=== PATIENT | female | born 1990 | race Caucasian/White ===

== ENCOUNTER 2019-08-22 17:12 | Emergency (ER) | payer BC ==
[2019-08-22 17:27] VITALS: BP 141/78; PULSE 93
--- NOTE | 2019-08-22 17:48 | EDM.PDOC ---
ED HPI GENERAL MEDICAL PROBLEM - General Chief Complaint: General Stated Complaint: sick Time Seen by Provider: 08/22/19 17:47 Source of Information: Reports: Patient History Limitations: Reports: No Limitations - History of Present Illness INITIAL COMMENTS - FREE TEXT/NARRATIVE: HISTORY AND PHYSICAL: History of present illness: Patient is a 29-year-old female presents to the ED With complaint of painful vaginal area. Patient states that she has had pain for the past 2 weeks after having intercourse with 2 people at the same time. She states she did use protection. She states she has history of batholin cysts requiring removal and feels like she may have more of these. She states it feels like there is a cut in her vaginal area and has a lot of pain with urination and a lot of pressure "down there." She also reports a sore throat on and off for the past couple of weeks. Review of systems: As per history of present illness and below otherwise all systems reviewed and negative. Past medical history: As per history of present illness and as reviewed below otherwise noncontributory. Surgical history: As per history of present illness and as reviewed below otherwise noncontributory. Social history: No reported history of drug or alcohol abuse. Family history: As per history of present illness and as reviewed below otherwise noncontributory. Physical exam: General: Patient sitting comfortably in no acute distress and nontoxic appearing HEENT: Atraumatic, normocephalic, pupils reactive, negative for conjunctival pallor or scleral icterus, mucous membranes moist, throat clear, neck supple, nontender, trachea midline. No meningeal signs. Lungs: Clear to auscultation, breath sounds equal bilaterally, chest nontender. Heart: S1S2, regular, negative for clicks, rubs, or overt murmur. Abdomen: Soft, nondistended, nontender. Negative for masses or hepatosplenomegaly. Negative for costovertebral tenderness. No rigidity, rebound , guarding. Pelvis: Stable nontender. Genitourinary: there are multiple small (2-3mm) ulcerative lesions with a pink base to the labia majora, labia minor, and near the clitoris. There is a small amount of vaginal discharge noted. Rectal: Deferred. Extremities: Atraumatic, negative for cords or calf pain. Neurovascular unremarkable. Neuro: Awake, alert, oriented. Cranial nerves II through XII unremarkable. Cerebellum unremarkable. Motor and sensory unremarkable throughout. Exam nonfocal. Notes: Diagnostics: UA, urine hcg, gonorrhea/chlamydia, cand/BV/trich, RPR, viral culture, rapid strep Therapeutics: 250mg Rocephin IM 1g Azithromycin PO Prescriptions: none Impression: Yeast vaginitis, vaginal lesions, STD concern Plan: Take medications as prescribed Follow up with [employer] Return to ED as needed as discussed Definitive disposition and diagnosis as appropriate pending reevaluation and review of above. Vaginal Pain Score (Numeric/FACES): 6 - Related Data Allergies Allergy/AdvReac Type Severity Reaction Status Date / Time No Known Allergies Allergy Verified 07/29/15 17:44 Home Meds: Home Meds Vits #93/Iron Fum/FA [ Formula Tablet] 1 each PO DAILY [History] Venlafaxine [Effexor XR] 150 tab PO DAILY 12/15/14 [History] Calcium Phosphate Trib/Vit D3 [Citracal + D3 Gummies] 1 tab.chew PO DAILY [History] Cholecalciferol (Vitamin D3) [Vitamin D3] 1,000 units PO DAILY 04/14/16 [History ] Clindamycin Phosphate 1 applic TOP BID 04/14/16 [History] Cyanocobalamin (Vitamin B-12) [Vitamin B-12] 1,000 mcg PO DAILY 04/14/16 [ History] Ferrous Sulfate [Iron] 1 tab PO DAILY 04/14/16 [History] Vitamin B Complex Vit C No.4 [Super B Complex] 1 tab PO DAILY 04/14/16 [History] Zinc 1 tab PO DAILY 04/14/16 [History] Diclofenac Sodium [Voltaren] 75 mg PO BIDMEALS #20 tab.cr 08/22/19 [Rx] Past Medical History HEENT History: Reports: None Cardiovascular History: Reports: None, Other (See Below) Respiratory History: Reports: None Gastrointestinal History: Reports: Bowel Obstruction Other Gastrointestinal History: gastric bypass 2011 Genitourinary History: Reports: UTI, Recurrent [employer] History: Reports: Polycystic Ovaries Musculoskeletal History: Reports: None Neurological History: Reports: None Psychiatric History: Reports: Anxiety, Depression Endocrine/Metabolic History: Reports: Obesity/BMI 30+ Hematologic History: Reports: None Immunologic History: Reports: None Oncologic (Cancer) History: Reports: None Dermatologic History: Reports: Other (See Below) Other Dermatologic History: adult acne - Infectious Disease History Infectious Disease History: Reports: None - Past Surgical History Head Surgeries/Procedures: Reports: None HEENT Surgical History: Reports: Tonsillectomy Respiratory Surgical History: Reports: None GI Surgical History: Reports: Appendectomy, Bariatric Procedure, Colon, Hernia Repair/Other Female Surgical History: Reports: Cystectomy Neurological Surgical History: Reports: None Musculoskeletal Surgical History: Reports: None Social & Family History - Family History Family Medical History: Noncontributory - Tobacco Use Smoking Status *Q: Never Smoker - Caffeine Use Caffeine Use: Reports: Coffee, Energy Drinks - Recreational Drug Use Recreational Drug Use: No ED ROS GENERAL - Review of Systems Review Of Systems: Comprehensive ROS is negative, except as noted in HPI. ED EXAM, GENERAL - Physical Exam Exam: See Below (see dictation) Course - Vital Signs Last Recorded V/S: Last Vital Signs Temp 97.1 F 08/22/19 17:25 Pulse 93 08/22/19 17:25 Resp 17 08/22/19 17:25 BP 141/78 H 08/22/19 17:25 Pulse Ox 97 08/22/19 17:25 - Orders/Labs/Meds Orders: Active Orders 24 hr Category Date Time Status CHLAMYDIA AND GONORRHEA BY TMA Stat Lab 08/22/19 17:30 Received CULTURE STREP A CONFIRMATION [RM] Stat Lab 08/22/19 17:55 Results CULTURE URINE [RM] Stat Lab 08/22/19 17:30 Received HSV AMPLIFIED MOLECULAR [MREF] Stat Lab 08/22/19 18:35 Received RPR (SYPHILIS SERO) W/ RFLX [REF] Stat Lab 08/22/19 18:58 Received STREP SCRN A RAPID W CULT CONF [RM] Stat Lab 08/22/19 17:55 Results Labs: Laboratory Tests 08/22/19 08/22/19 Range/Units 17:30 18:35 Urine Color YELLOW Urine Appearance HAZY Urine pH 5.5 (5.0-8.0) Ur Specific [place] 1.025 (1.001-1.035) Urine Protein NEGATIVE (NEGATIVE) mg/dL Urine Glucose (UA) NEGATIVE (NEGATIVE) mg/dL Urine Ketones NEGATIVE (NEGATIVE) mg/dL Urine Occult Blood NEGATIVE (NEGATIVE) Urine Nitrite NEGATIVE (NEGATIVE) Urine Bilirubin NEGATIVE (NEGATIVE) Urine Urobilinogen 0.2 (<2.0) EU/dL Ur Leukocyte Esterase SMALL H (NEGATIVE) Urine RBC 0-3 (0-2/HPF) Urine WBC 1-4 (0-5/HPF) Ur Epithelial Cells FEW (NONE-FEW) Urine Bacteria FEW (NEGATIVE) Esther species DNA POSITIVE H (NEGATIVE) Gardnerella DNA Probe NEGATIVE (NEGATIVE) Trichomonas DNA Probe NEGATIVE (NEGATIVE) Meds: Medications Discontinued Medications Generic Name Dose Route Start Last Admin Trade Name [place] PRN Reason Stop Dose Admin Azithromycin 1,000 mg 08/22/19 18:43 08/22/19 18:58 Zithromax PO 08/22/19 18:44 1,000 mg NOW STA Administration Fluconazole 150 mg 08/22/19 20:25 Diflucan PO 08/22/19 20:26 ONETIME ONE Ceftriaxone Sodium 250 mg/ 1 mls @ 1 mls/sec 08/22/19 18:43 08/22/19 18:58 Lidocaine HCl IM 08/22/19 18:44 1 mls/sec ONETIME ONE Administration Departure - Departure Time of Disposition: 20:26 Disposition: Home, Self-Care 01 Condition: Good Clinical Impression: Yeast vaginitis, Concern about STD in female without diagnosis, Vulvovaginal discomfort - Discharge Information Prescriptions: Diclofenac Sodium [Voltaren] 75 mg PO BIDMEALS #20 tab.cr Instructions: Vaginal Yeast Infection, Adult Referrals: PCP,None [Primary Care Provider] - Forms: ED Department Discharge Additional Instructions: The following information is given to patients seen in the emergency department who are being discharged to home. This information is to outline your options for follow-up care. We provide all patients seen in our emergency department with a follow-up referral. The need for follow-up, as well as the timing and circumstances, are variable depending upon the specifics of your emergency department visit. If you don't have a primary care physician on staff, we will provide you with a referral. We always advise you to contact your personal physician following an emergency department visit to inform them of the circumstance of the visit and for follow-up with them and/or the need for any referrals to a consulting specialist. The emergency department will also refer you to a specialist when appropriate. This referral assures that you have the opportunity for follow-up care with a specialist. All of these measure are taken in an effort to provide you with optimal care, which includes your follow-up. Under all circumstances we always encourage you to contact your private physician who remains a resource for coordinating your care. When calling for follow-up care, please make the office aware that this follow-up is from your recent emergency room visit. If for any reason you are refused follow-up, please contact the [facility] at and asked to speak to the emergency department charge nurse. [facility] [address] [place] [id number] [id number] Take medications as prescribed Follow up with [employer] Return to ED as needed as discussed Sepsis Event Note - Evaluation Sepsis Screening Result: No Definite Risk - Focused Exam Vital Signs: Vital Signs Temp Pulse Resp BP Pulse Ox 08/22/19 17:25 97.1 F 93 17 141/78 H 97 Date Exam was Performed: 08/22/19 Time Exam was Performed: 22:42 - My Orders Last 24 Hours: My Active Orders 08/22/19 17:30 CHLAMYDIA AND GONORRHEA BY TMA Stat CULTURE URINE [RM] Stat 08/22/19 17:55 CULTURE STREP A CONFIRMATION [RM] Stat STREP SCRN A RAPID W CULT CONF [RM] Stat 08/22/19 18:35 HSV AMPLIFIED MOLECULAR [MREF] Stat 08/22/19 18:58 RPR (SYPHILIS SERO) W/ RFLX [REF] Stat - Assessment/Plan Last 24 Hours: My Active Orders 08/22/19 17:30 CHLAMYDIA AND GONORRHEA BY TMA Stat CULTURE URINE [RM] Stat 08/22/19 17:55 CULTURE STREP A CONFIRMATION [RM] Stat STREP SCRN A RAPID W CULT CONF [RM] Stat 08/22/19 18:35 HSV AMPLIFIED MOLECULAR [MREF] Stat 08/22/19 18:58 RPR (SYPHILIS SERO) W/ RFLX [REF] Stat
[2019-08-22] MEDS ORDERED: Azithromycin 250 MG Tab PO STA (18:43)
[2019-08-22] MEDS ORDERED: cefTRIAXone 250 MG in Lidocaine 1% 1 ML IM ONE (18:43)
[2019-08-22] MEDS ORDERED: Fluconazole 150 MG Tab PO ONE (20:25)
== END 2019-08-22 20:37 | disposition home or self-care (01) ==
LOC: MW.ED 17:12
DX: N76.0 Acute vaginitis (principal); B37.9 Candidiasis, unspecified
CPT/HCPCS: 36415; 81001; 86592; 86593; 87081; 87086; 87480; 87491; 87510; 87529; 87591; 87660; 87880; 96372; 99283; A9270; J0696; J2001

== ENCOUNTER 2019-08-29 03:36 | Emergency (ER) | payer BC ==
[2019-08-29] MEDS ORDERED: Morphine 10 MG/ML Syringe IVPUSH ONE (04:05)
--- NOTE | 2019-08-29 04:05 | EDM.PDOC ---
<Eliezer Bryant - Last Filed: 08/29/19 07:39> ED HPI GENERAL MEDICAL PROBLEM - General Chief Complaint: Abdominal Pain Stated Complaint: ABDOMINAL PAIN Time Seen by Provider: 08/29/19 04:00 - History of Present Illness INITIAL COMMENTS - FREE TEXT/NARRATIVE: Changes shift I am a new ER doctor. Patient evaluated at 7:[address] scan shows only large amount of copious stool otherwise normal for any pathology. Urine is negative. Patient has a white count of 13,000 otherwise no shift. Exam patient: Abdomen is soft No evidence of rebound or rigidity. Minimal to no pain. I explained to the patient her results. Instructed her to increase her fluids and take MiraLAX for the constipation and to follow-up with her primary care physician Onset: Today - Related Data Allergies Allergy/AdvReac Type Severity Reaction Status Date / Time No Known Allergies Allergy Verified 07/29/15 17:44 Home Meds: Home Meds Vits #93/Iron Fum/FA [ Formula Tablet] 1 each PO DAILY [History] Venlafaxine [Effexor XR] 150 tab PO DAILY 12/15/14 [History] Cyanocobalamin (Vitamin B-12) [Vitamin B-12] 1,000 mcg PO DAILY 04/14/16 [ History] Ferrous Sulfate [Iron] 1 tab PO DAILY 04/14/16 [History] Vitamin B Complex Vit C No.4 [Super B Complex] 1 tab PO DAILY 04/14/16 [History] Zinc 1 tab PO DAILY 04/14/16 [History] Diclofenac Sodium [Voltaren] 75 mg PO BIDMEALS #20 tab.cr 08/22/19 [Rx] DULoxetine [Cymbalta] 60 mg PO DAILY 08/29/19 [History] Nitrofurantoin Macrocrystal [Nitrofurantoin] 100 mg PO DAILY 08/29/19 [History] valACYclovir [Valtrex] 1,000 mg PO DAILY 08/29/19 [History] Course - Vital Signs Last Recorded V/S: Last Vital Signs Temp 36.7 C 08/29/19 07:59 Pulse 104 H 08/29/19 07:59 Resp 18 08/29/19 07:59 BP 112/57 L 08/29/19 07:59 Pulse Ox 100 08/29/19 07:59 - Orders/Labs/Meds Labs: Laboratory Tests 08/29/19 08/29/19 08/29/19 Range/Units 03:41 03:41 04:00 WBC 13.76 H (4.0-11.0) K/uL RBC 4.64 (4.30-5.90) M/uL Hgb 9.5 L (12.0-16.0) g/dL Hct 32.1 L (36.0-46.0) % MCV 69.2 L (80.0-98.0) fL MCH 20.5 L (27.0-32.0) pg MCHC 29.6 L (31.0-37.0) g/dL RDW Std Deviation 46.1 (28.0-62.0) fl RDW Coeff of Bruce 18 H (11.0-15.0) % Plt Count 254 (150-400) K/uL MPV 9.20 (7.40-12.00) fL Neut % (Auto) 82.7 H (48.0-80.0) % Lymph % (Auto) 10.1 L (16.0-40.0) % Taylor % (Auto) 6.5 (0.0-15.0) % Eos % (Auto) 0.5 (0.0-7.0) % Baso % (Auto) 0.2 (0.0-1.5) % Neut # (Auto) 11.4 H (1.4-5.7) K/uL Lymph # (Auto) 1.4 (0.6-2.4) K/uL Taylor # (Auto) 0.9 H (0.0-0.8) K/uL Eos # (Auto) 0.1 (0.0-0.7) K/uL Baso # (Auto) 0.0 (0.0-0.1) K/uL Nucleated RBC % 0.0 /100WBC Nucleated RBCs # 0 K/uL Lactate (0.20-2.00) mmol/L Sodium (136-145) mmol/L Potassium (3.5-5.1) mmol/L Chloride (98-107) mmol/L Carbon Dioxide (21.0-32.0) mmol/L BUN (7.0-18.0) mg/dL Creatinine (0.6-1.0) mg/dL Est Cr Clr Drug Dosing mL/min Estimated GFR (MDRD) ml/min Glucose (74-106) mg/dL Calcium (8.5-10.1) mg/dL Total Bilirubin (0.2-1.0) mg/dL AST (15-37) IU/L ALT (14-63) IU/L Alkaline Phosphatase (46-116) U/L Total Protein (6.4-8.2) g/dL Albumin (3.4-5.0) g/dL Globulin (2.6-4.0) g/dL Albumin/Globulin Ratio (0.9-1.6) Urine Color YELLOW Urine Appearance SLT CLOUDY Urine pH 6.5 (5.0-8.0) Ur Specific [place] 1.025 (1.001-1.035) Urine Protein NEGATIVE (NEGATIVE) mg/dL Urine Glucose (UA) NEGATIVE (NEGATIVE) mg/dL Urine Ketones 15 H (NEGATIVE) mg/dL Urine Occult Blood LARGE H (NEGATIVE) Urine Nitrite NEGATIVE (NEGATIVE) Urine Bilirubin NEGATIVE (NEGATIVE) Urine Urobilinogen 0.2 (<2.0) EU/dL Ur Leukocyte Esterase NEGATIVE (NEGATIVE) Urine RBC 4-7 (0-2/HPF) Urine WBC 0-1 (0-5/HPF) Ur Epithelial Cells RARE (NONE-FEW) Urine Bacteria RARE (NEGATIVE) Urine HCG, Qual NEGATIVE (NEGATIVE) 08/29/19 08/29/19 Range/Units 04:00 04:00 WBC (4.0-11.0) K/uL RBC (4.30-5.90) M/uL Hgb (12.0-16.0) g/dL Hct (36.0-46.0) % MCV (80.0-98.0) fL MCH (27.0-32.0) pg MCHC (31.0-37.0) g/dL RDW Std Deviation (28.0-62.0) fl RDW Coeff of Bruce (11.0-15.0) % Plt Count (150-400) K/uL MPV (7.40-12.00) fL Neut % (Auto) (48.0-80.0) % Lymph % (Auto) (16.0-40.0) % Taylor % (Auto) (0.0-15.0) % Eos % (Auto) (0.0-7.0) % Baso % (Auto) (0.0-1.5) % Neut # (Auto) (1.4-5.7) K/uL Lymph # (Auto) (0.6-2.4) K/uL Taylor # (Auto) (0.0-0.8) K/uL Eos # (Auto) (0.0-0.7) K/uL Baso # (Auto) (0.0-0.1) K/uL Nucleated RBC % /100WBC Nucleated RBCs # K/uL Lactate 1.7 (0.20-2.00) mmol/L Sodium 139 (136-145) mmol/L Potassium 3.8 (3.5-5.1) mmol/L Chloride 103 (98-107) mmol/L Carbon Dioxide 25.6 (21.0-32.0) mmol/L BUN 15 (7.0-18.0) mg/dL Creatinine 0.8 (0.6-1.0) mg/dL Est Cr Clr Drug Dosing 100.90 mL/min Estimated GFR (MDRD) > 60.0 ml/min Glucose 118 H (74-106) mg/dL Calcium 8.2 L (8.5-10.1) mg/dL Total Bilirubin 0.5 (0.2-1.0) mg/dL AST 19 (15-37) IU/L ALT 18 (14-63) IU/L Alkaline Phosphatase 102 (46-116) U/L Total Protein 6.8 (6.4-8.2) g/dL Albumin 3.4 (3.4-5.0) g/dL Globulin 3.4 (2.6-4.0) g/dL Albumin/Globulin Ratio 1.0 (0.9-1.6) Urine Color Urine Appearance Urine pH (5.0-8.0) Ur Specific [place] (1.001-1.035) Urine Protein (NEGATIVE) mg/dL Urine Glucose (UA) (NEGATIVE) mg/dL Urine Ketones (NEGATIVE) mg/dL Urine Occult Blood (NEGATIVE) Urine Nitrite (NEGATIVE) Urine Bilirubin (NEGATIVE) Urine Urobilinogen (<2.0) EU/dL Ur Leukocyte Esterase (NEGATIVE) Urine RBC (0-2/HPF) Urine WBC (0-5/HPF) Ur Epithelial Cells (NONE-FEW) Urine Bacteria (NEGATIVE) Urine HCG, Qual (NEGATIVE) Meds: Medications Discontinued Medications Generic Name Dose Route Start Last Admin Trade Name [place] PRN Reason Stop Dose Admin Iopamidol 100 ml 08/29/19 05:50 08/29/19 06:17 Isovue-370 (76%) IVPUSH 08/29/19 05:51 100 ml ONETIME STA Administration Morphine Sulfate 6 mg 08/29/19 04:05 08/29/19 04:13 Morphine IVPUSH 08/29/19 04:06 6 mg ONETIME ONE Administration Departure - Departure Time of Disposition: 07:43 Disposition: Home, Self-Care 01 Condition: Good Clinical Impression: Constipation - Discharge Information Instructions: Constipation, Adult, [id number] Referrals: Jolene Hoskins, VALET CASHIER [Primary Care Provider] - Forms: ED Department Discharge Additional Instructions: Patient to take MiraLAX and increase her fluids. Follow-up with her primary care physician within 1 to 2 weeks The following information is given to patients seen in the emergency department who are being discharged to home. This information is to outline your options for follow-up care. We provide all patients seen in our emergency department with a follow-up referral. The need for follow-up, as well as the timing and circumstances, are variable depending upon the specifics of your emergency department visit. If you don't have a primary care physician on staff , we will provide you with a referral. We always advise you to contact your personal physician following an emergency department visit to inform them of the circumstance of the visit and for follow-up with them and/or the need for any referrals to a consulting specialist. The emergency department will also refer you to a specialist when appropriate. This referral assures that you have the opportunity for follow-up care with a specialist. All of these measure are taken in an effort to provide you with optimal care, which includes your follow- up. Under all circumstances we always encourage you to contact your private physician who remains a resource for coordinating your care. When calling for follow-up care, please make the office aware that this follow-up is from your recent emergency room visit. If for any reason you are refused follow-up, please contact the [facility] Emergency Department at and asked to speak to the emergency department charge nurse. SUNIL [facility] [address] [place] [address] [facility] [address] [place] [address] Sepsis Event Note - Focused Exam Date Exam was Performed: 08/29/19 Time Exam was Performed: 07:39 <Kenney Rolon - Last Filed: 08/29/19 20:45> ED HPI GENERAL MEDICAL PROBLEM - General Source of Information: Reports: Patient History Limitations: Reports: No Limitations - History of Present Illness INITIAL COMMENTS - FREE TEXT/NARRATIVE: Patient is a 29-year-old female with a past medical history of gastric bypass, bowel obstruction and appendectomy presenting with a chief complaint of lower abdominal discomfort. Patient states that she noticed last night in the evening she was experiencing slight discomfort in both sides of her lower abdomen. The symptoms gradually went away and then increase in intensity around 3 AM. Patient states that she now feels a burning pain bilaterally in the lower abdomen which is stronger on the right side with radiation to the sides but not to the back. She notes that tonight she did have bleeding vaginal bleeding which is unusual for her and that she had her period last week. She states that she checked her temperature and was 99.0. She denies any chills, nausea, vomiting. Pmhx: None Pshx: Per HPI, breast augmentation, abdominoplasty Family Hx: noncontributory Smoking history? no Etoh use? none Drug use? none In addition to that documented in the HPI above, the additional ROS was obtained : Constitutional: Denies fevers or chills Eyes: Denies vision changes ENMT: Denies sore throat CV: Denies chest pain Resp: Denies SOB GI: Denies vomiting or diarrhea : Denies painful urination MSK: Denies recent trauma Skin: Denies new rashes Neuro: Denies new numbness or tingling or weakness Endocrine: Denies unexpected weight loss Heme: Denies bleeding disorders I have reviewed the triage vital signs Const: Well nourished, well developed, appears stated age Eyes: PERRL, no conjunctival injection HENT: NCAT, Neck supple without meningismus CV: RRR, Warm, well-perfused extremities RESP: CTAB, Unlabored respiratory effort GI: Tenderness to palpation of the right lower quadrant, soft, non-distended, no masses MSK: No gross deformities appreciated Skin: Warm, dry. No rashes Neuro: Alert, lipstick molder II-XII grossly intact. Sensation and motor function of extremities grossly intact. Psych: Appropriate mood and affect Assessment and plan: Patient 29-year-old female with right lower quadrant abdominal pain. She has tenderness in the right lower quadrant but no nausea vomiting or evidence of bowel obstruction. Given patient's complicated history of multiple bowel surgeries CT scan was done performed to rule out any evidence of bowel obstruction, perforation also look for evidence of a kidney stone and any other postoperative complications. Patient's labs demonstrated slight elevation of white blood cell count lactic acid was normal. Patient did not have any evidence of sepsis on exam or labs. Patient be signed out to Dr. Bryant pending follow-up of CT scan and reevaluation. Abdomen Pain Score (Numeric/FACES): 8 Past Medical History HEENT History: Reports: None Cardiovascular History: Reports: None Respiratory History: Reports: None Gastrointestinal History: Reports: Bowel Obstruction Other Gastrointestinal History: gastric bypass 2011 Genitourinary History: Reports: UTI, Recurrent FIRST ASSISTANT MANAGER History: Reports: Polycystic Ovaries Musculoskeletal History: Reports: None Neurological History: Reports: None Psychiatric History: Reports: Anxiety, Depression Endocrine/Metabolic History: Reports: Obesity/BMI 30+ Insulin Pump Model and Arson And [employer] Investigator: None Hematologic History: Reports: None Immunologic History: Reports: None Oncologic (Cancer) History: Reports: None Dermatologic History: Reports: Other (See Below) Other Dermatologic History: adult acne - Infectious Disease History Infectious Disease History: Reports: None - Past Surgical History Head Surgeries/Procedures: Reports: None HEENT Surgical History: Reports: Tonsillectomy Respiratory Surgical History: Reports: None GI Surgical History: Reports: Appendectomy, Bariatric Procedure, Colon, Hernia Repair/Other Female Surgical History: Reports: Cystectomy Neurological Surgical History: Reports: None Musculoskeletal Surgical History: Reports: None Social & Family History - Family History Family Medical History: Noncontributory - Tobacco Use Smoking Status *Q: Never Smoker - Caffeine Use Caffeine Use: Reports: Coffee - Recreational Drug Use Recreational Drug Use: No ED ROS GENERAL - Review of Systems Review Of Systems: See Below ED EXAM, GI/ABD - Physical Exam Exam: See Below Course - Orders/Labs/Meds Labs: Laboratory Tests 08/29/19 08/29/19 08/29/19 Range/Units 03:41 03:41 04:00 WBC 13.76 H (4.0-11.0) K/uL RBC 4.64 (4.30-5.90) M/uL Hgb 9.5 L (12.0-16.0) g/dL Hct 32.1 L (36.0-46.0) % MCV 69.2 L (80.0-98.0) fL MCH 20.5 L (27.0-32.0) pg MCHC 29.6 L (31.0-37.0) g/dL RDW Std Deviation 46.1 (28.0-62.0) fl RDW Coeff of Bruce 18 H (11.0-15.0) % Plt Count 254 (150-400) K/uL MPV 9.20 (7.40-12.00) fL Neut % (Auto) 82.7 H (48.0-80.0) % Lymph % (Auto) 10.1 L (16.0-40.0) % Taylor % (Auto) 6.5 (0.0-15.0) % Eos % (Auto) 0.5 (0.0-7.0) % Baso % (Auto) 0.2 (0.0-1.5) % Neut # (Auto) 11.4 H (1.4-5.7) K/uL Lymph # (Auto) 1.4 (0.6-2.4) K/uL Taylor # (Auto) 0.9 H (0.0-0.8) K/uL Eos # (Auto) 0.1 (0.0-0.7) K/uL Baso # (Auto) 0.0 (0.0-0.1) K/uL Nucleated RBC % 0.0 /100WBC Nucleated RBCs # 0 K/uL Lactate (0.20-2.00) mmol/L Sodium (136-145) mmol/L Potassium (3.5-5.1) mmol/L Chloride (98-107) mmol/L Carbon Dioxide (21.0-32.0) mmol/L BUN (7.0-18.0) mg/dL Creatinine (0.6-1.0) mg/dL Est Cr Clr Drug Dosing mL/min Estimated GFR (MDRD) ml/min Glucose (74-106) mg/dL Calcium (8.5-10.1) mg/dL Total Bilirubin (0.2-1.0) mg/dL AST (15-37) IU/L ALT (14-63) IU/L Alkaline Phosphatase (46-116) U/L Total Protein (6.4-8.2) g/dL Albumin (3.4-5.0) g/dL Globulin (2.6-4.0) g/dL Albumin/Globulin Ratio (0.9-1.6) Urine Color YELLOW Urine Appearance SLT CLOUDY Urine pH 6.5 (5.0-8.0) Ur Specific [place] 1.025 (1.001-1.035) Urine Protein NEGATIVE (NEGATIVE) mg/dL Urine Glucose (UA) NEGATIVE (NEGATIVE) mg/dL Urine Ketones 15 H (NEGATIVE) mg/dL Urine Occult Blood LARGE H (NEGATIVE) Urine Nitrite NEGATIVE (NEGATIVE) Urine Bilirubin NEGATIVE (NEGATIVE) Urine Urobilinogen 0.2 (<2.0) EU/dL Ur Leukocyte Esterase NEGATIVE (NEGATIVE) Urine RBC 4-7 (0-2/HPF) Urine WBC 0-1 (0-5/HPF) Ur Epithelial Cells RARE (NONE-FEW) Urine Bacteria RARE (NEGATIVE) Urine HCG, Qual NEGATIVE (NEGATIVE) 08/29/19 08/29/19 Range/Units 04:00 04:00 WBC (4.0-11.0) K/uL RBC (4.30-5.90) M/uL Hgb (12.0-16.0) g/dL Hct (36.0-46.0) % MCV (80.0-98.0) fL MCH (27.0-32.0) pg MCHC (31.0-37.0) g/dL RDW Std Deviation (28.0-62.0) fl RDW Coeff of Bruce (11.0-15.0) % Plt Count (150-400) K/uL MPV (7.40-12.00) fL Neut % (Auto) (48.0-80.0) % Lymph % (Auto) (16.0-40.0) % Taylor % (Auto) (0.0-15.0) % Eos % (Auto) (0.0-7.0) % Baso % (Auto) (0.0-1.5) % Neut # (Auto) (1.4-5.7) K/uL Lymph # (Auto) (0.6-2.4) K/uL Taylor # (Auto) (0.0-0.8) K/uL Eos # (Auto) (0.0-0.7) K/uL Baso # (Auto) (0.0-0.1) K/uL Nucleated RBC % /100WBC Nucleated RBCs # K/uL Lactate 1.7 (0.20-2.00) mmol/L Sodium 139 (136-145) mmol/L Potassium 3.8 (3.5-5.1) mmol/L Chloride 103 (98-107) mmol/L Carbon Dioxide 25.6 (21.0-32.0) mmol/L BUN 15 (7.0-18.0) mg/dL Creatinine 0.8 (0.6-1.0) mg/dL Est Cr Clr Drug Dosing 100.90 mL/min Estimated GFR (MDRD) > 60.0 ml/min Glucose 118 H (74-106) mg/dL Calcium 8.2 L (8.5-10.1) mg/dL Total Bilirubin 0.5 (0.2-1.0) mg/dL AST 19 (15-37) IU/L ALT 18 (14-63) IU/L Alkaline Phosphatase 102 (46-116) U/L Total Protein 6.8 (6.4-8.2) g/dL Albumin 3.4 (3.4-5.0) g/dL Globulin 3.4 (2.6-4.0) g/dL Albumin/Globulin Ratio 1.0 (0.9-1.6) Urine Color Urine Appearance Urine pH (5.0-8.0) Ur Specific [place] (1.001-1.035) Urine Protein (NEGATIVE) mg/dL Urine Glucose (UA) (NEGATIVE) mg/dL Urine Ketones (NEGATIVE) mg/dL Urine Occult Blood (NEGATIVE) Urine Nitrite (NEGATIVE) Urine Bilirubin (NEGATIVE) Urine Urobilinogen (<2.0) EU/dL Ur Leukocyte Esterase (NEGATIVE) Urine RBC (0-2/HPF) Urine WBC (0-5/HPF) Ur Epithelial Cells (NONE-FEW) Urine Bacteria (NEGATIVE) Urine HCG, Qual (NEGATIVE) Meds: Medications Discontinued Medications Generic Name Dose Route Start Last Admin Trade Name Freq PRN Reason Stop Dose Admin Iopamidol 100 ml 08/29/19 05:50 08/29/19 06:17 Isovue-370 (76%) IVPUSH 08/29/19 05:51 100 ml ONETIME STA Administration Morphine Sulfate 6 mg 08/29/19 04:05 08/29/19 04:13 Morphine IVPUSH 08/29/19 04:06 6 mg ONETIME ONE Administration Sepsis Event Note - Evaluation Sepsis Screening Result: No Definite Risk - Focused Exam Date Exam was Performed: 08/29/19 Time Exam was Performed: 20:44
[2019-08-29 04:35] LABS: BLOOD UREA NITROGEN,BUN 15 mg/dL (7.0-18.0); CARBON DIOXIDE,CO2 25.6 mmol/L (21.0-32.0); CHLORIDE,CL 103 mmol/L (98-107); GLUCOSE RANDOM 118 mg/dL (74-106); POTASSIUM,K 3.8 mmol/L (3.5-5.1); SODIUM,NA 139 mmol/L (136-145)
[2019-08-29] MEDS ORDERED: Iopamidol 755 Mg/ML 100 ML Bottle IVPUSH STA (05:50)
--- NOTE | 2019-08-29 07:01 | CT ---
INDICATION: Abdominal pain; history of small bowel obstruction with history of small bowel resection; history of Antelmo-en-Y gastrojejunostomy and appendectomy. COMPARISON: CT abdomen and pelvis July 04, 2016. TECHNIQUE: CT abdomen and pelvis with intravenous and oral contrast; coronal and sagittal reformats. FINDINGS: No abnormal intra pulmonary nodular densities through the lung bases. No evidence of pleural effusion. Normal size cardiac silhouette without any evidence of pericardial effusion. Status post augmentation mammoplasty bilateral. No focal hepatic or splenic pathology. No pancreatic pathology. Gallbladder is unremarkable. No adrenal pathology. No kidney stones or obstructive uropathy. No retroperitoneal lymphadenopathy. No evidence of abdominal or pelvic ascites. Copious amounts of retained stool in the colon. Status post appendectomy. Status post Antelmo-en-Y gastric bypass surgery. No evidence of small bowel obstruction. No evidence of pneumoperitoneum. status post ventral hernia repair with a mesh. Impression: 1. No evidence of intestinal obstruction or pneumoperitoneum. 2. Status post Antelmo-en-Y gastric bypass surgery, ventral hernia repair and appendectomy. 3. Copious amounts of retained stool identified in the colon. Please note that all CT scans at this facility use dose modulation, iterative reconstruction, and/or weight-based dosing when appropriate to reduce radiation dose to as low as reasonably achievable. Dictated by Montserrat Malave MD @ Aug 29 2019 6:51AM Signed by Dr. Montserrat Malave @ Aug 29 2019 6:59AM
[2019-08-29 08:03] VITALS: BP 112/57; PULSE 104
== END 2019-08-29 08:03 | disposition home or self-care (01) ==
LOC: MW.ED 03:36
DX: K59.00 Constipation, unspecified (principal); F41.9 Anxiety disorder, unspecified; F32.9 Major depressive disorder, single episode, unspecified; E66.9 Obesity, unspecified; Z68.26 Body mass index [BMI] 26.0-26.9, adult; Z79.899 Other long term (current) drug therapy
CPT/HCPCS: 36415; 74177; 80053; 81001; 81025; 83605; 85025; 96374; 99284; J2270; Q9967

== ENCOUNTER 2020-03-04 01:06 | Emergency (ER) | payer BC, OTHER ==
[2020-03-04] MEDS ORDERED: Ondansetron 4 MG/2 ML SDV ONE (01:09)
[2020-03-04] MEDS ORDERED: Sodium Chloride 0.9% 2.5 ML Syringe FLUSH PRN (01:15)
[2020-03-04] MEDS ORDERED: Sodium Chloride 0.9% 10 ML Syringe FLUSH PRN (01:15)
[2020-03-04] MEDS ORDERED: Sodium Chloride 0.9% 10 ML SDV IV SCH (01:15)
[2020-03-04 01:36] LABS: BLOOD UREA NITROGEN,BUN 9 mg/dL (7.0-18.0); CARBON DIOXIDE,CO2 22.6 mmol/L (21.0-32.0); CHLORIDE,CL 101 mmol/L (98-107); GLUCOSE RANDOM 126 mg/dL (74-106); POTASSIUM,K 2.5 mmol/L (3.5-5.1); SODIUM,NA 135 mmol/L (136-145)
[2020-03-04 01:41] VITALS: BP 128/101; PULSE 99
[2020-03-04] MEDS ORDERED: Sodium Chloride 0.9% 1,000 ML IV ONE (01:47)
--- NOTE | 2020-03-04 01:51 | CT ---
INDICATION: Trauma TECHNIQUE: CT head without contrast. COMPARISON: None FINDINGS: CSF spaces: Within normal limits for age. Brain parenchyma: The bishop-white differentiation is normal. No sign of mass, hemorrhage, or midline shift. Skull base and calvarium: The visualized paranasal sinuses and mastoid air cells demonstrate no acute or significant findings. The visualized orbits are grossly unremarkable. No skull fractures. IMPRESSION: Atraumatic appearance of the brain. Please note that all CT scans at this facility use dose modulation, iterative reconstruction, and/or weight-based dosing when appropriate to reduce radiation dose to as low as reasonably achievable. Dictated by Faustino Singh MD @ Mar 04 2020 1:44AM Signed by Dr. Faustino Singh @ Mar 04 2020 1:48AM
--- NOTE | 2020-03-04 01:51 | CT ---
INDICATION: Trauma TECHNIQUE: CT cervical spine without contrast. COMPARISON: None FINDINGS: Vertebral alignment: Alignment is normal. Vertebrae: There are no fractures or suspicious bony lesions. Discs and facet joints: Disc spaces and facets are within normal limits. Extraspinal findings: Prevertebral soft tissues, visualized airway, and visualized lungs are unremarkable. IMPRESSION: Given the limitation of motion artifact, no evidence of acute cervical spine trauma. Please note that all CT scans at this facility use dose modulation, iterative reconstruction, and/or weight-based dosing when appropriate to reduce radiation dose to as low as reasonably achievable. Dictated by Faustino Singh MD @ Mar 04 2020 1:49AM Signed by Dr. Faustino Singh @ Mar 04 2020 1:49AM
--- NOTE | 2020-03-04 02:32 | CR ---
Indication: Fall, trauma Technique: Chest 1 view Comparison: None Findings/Impression: Cardiovascular and mediastinum: Heart size and vasculature are normal in caliber and appearance. Lungs and pleural space: No pleural effusion or pneumothorax. Mild bronchial wall thickening with minimal reticular interstitial prominence centrally which can be seen in bronchitis or bronchiolitis. Bones and soft tissues: No acute findings. Dictated by Percy Ortez MD @ Mar 04 2020 2:30AM Signed by Dr. Percy Ortez @ Mar 04 2020 2:31AM
--- NOTE | 2020-03-04 02:35 | CR ---
Indication: Fall Technique: One view Comparison: None Findings: Bones: Alignment is normal. No fractures or bone lesions. Joint spaces: Unremarkable. Soft tissues: Right lower quadrant surgical clips. Umbilical piercing. Dictated by Percy Ortez MD @ Mar 04 2020 2:31AM Signed by Dr. Percy Ortez @ Mar 04 2020 2:33AM
[2020-03-04] MEDS ORDERED: Diphtheria/Tetanus Toxoids,Adult (Td) 0.5 ML Syringe IM ONE (05:46)
--- NOTE | 2020-03-04 05:51 | EDM.PDOC ---
ED HPI GENERAL MEDICAL PROBLEM - General Chief Complaint: Trauma Stated Complaint: INTOXICATION Time Seen by Provider: 03/04/20 01:28 - History of Present Illness INITIAL COMMENTS - FREE TEXT/NARRATIVE: CHIEF COMPLAINT(S): Fall HISTORY OF PRESENT ILLNESS: This is a 29-year-old woman who presents to the emergency department as a trauma resuscitation via EMS for fall. Per EMS: The patient was drinking at a bar and possibly had a syncopal episode falling backwards hitting her head and was intermittently unresponsive in route. They stated the patient's vitals were stable. Otherwise history is limited. REVIEW OF SYSTEMS: Unable to obtain secondary patient clinical condition PAST MEDICAL HISTORY: As per history of present illness and as reviewed below otherwise noncontributory. SURGICAL HISTORY: As per history of present illness and as reviewed below otherwise noncontributory. LMP: X SOCIAL HISTORY: As per history of present illness and as reviewed below otherwise noncontributory. FAMILY HISTORY: As per history of present illness and as reviewed below otherwise noncontributory. EXAMINATION OF ORGAN SYSTEMS/BODY AREAS: VITALS: Blood pressure is 128/101, heart rate 99, respiratory rate 16 with an oxygen saturation 96% on room air. Temperature 35.7 GENERAL: Young woman who appears intoxicated and drowsy. HEAD, EARS, EYES, NOSE THROAT: Normocephalic, atraumatic. PERRL. There was no facial bone tenderness. Ears were clear without any hemotympanum. Oropharynx is clear without any blood. There is no missing or chipped teeth. Neck was supple and nontender. There is a small punctate abrasion to the patient's anterior left lip. C-collar in place. RESPIRATORY: No tachypnea. Equal breath sounds are heard bilaterally. Lungs clear to auscultation. CARDIOVASCULAR: Regular rate and rhythm. Heart sounds were normal. There is no S3, S4, murmur, rub. There is no chest wall tenderness. No crepitus. Radial and dorsalis pedis pulses were palpable and equal bilaterally. ABDOMEN: The abdomen was soft, nondistended, and nontender to palpation. There was no guarding or rebound tenderness. Bowel sounds were present throughout the abdomen and normal. Pelvis was stable and not tender to rock. SPINE: Appropriate rectal tone. There is no cervical, thoracic, or lumbar spinal tenderness. EXTREMITIES: Extremity examination revealed no deformity, localized swelling, contusions, or other abnormality. Patient is moving all 4 extremities equally. Distal pulses palpable in bilterally. NEUROLOGICAL: Intermittently unresponsive but following commands intermittently. On neurological examination Elvia Coma Scale was 13. Facies were symmetrical. Strength was good in all extremities. SKIN: Appropriately warm to touch. No rashes, or pallor. . MEDICAL DECISION MAKING AND COURSE IN THE ED WITH INTERPRETATION/REVIEW OF DIAGNOSTIC STUDIES: This is a 29-year-old woman who presents to emergency department as a trauma resuscitation. Immediately upon entering the resuscitation bay ATLS protocol was followed, the patient is disrobed, and placed on continuous cardiac monitoring as well as pulse oximetry. Patient tells me their name displaying a patent airway, breath sounds are equal bilaterally, and patient has palpable pulses in all 4 extremities. The patient does not have any gross deformities, and does not have any gross deficit. Upon exposure no further lesions are seen. Palpation of the cervical, thoracic, and lumbar spine reveals no step-offs. IV access is obtained, and trauma labs are sent. Given the intermittent nature of her responsiveness will obtain a CT head without contrast to evaluate for any intracranial abnormality given her intoxication. Will obtain a CT cervical spine as her cervical spine cannot be cleared secondary to intoxication. Will obtain chest x-ray and pelvic x-ray. Will obtain trauma labs. At this point the patient was protecting her airway therefore no intervention is needed at this time Chest x-ray as reviewed by myself, and radiologist shows no acute pathology. Pelvis x-ray shows no fracture or dislocation. The radiological images were viewed by myself along with reading the report from the radiologist. CT head without contrast does not reveal any acute intracranial abnormality. CT cervical spine was suboptimal however there was no obvious evidence of fracture or dislocation. Laboratory: CBC reveals a leukocytosis of 15.86, microcytic anemia with a hemoglobin of 9 hematocrit of 30.2. Coags are within normal limits. BMP reveals hyponatremia 135, hypokalemia at 2.5 likely secondary to adrenergic response, hyperglycemia 126 otherwise unremarkable. AST and ALT are normal. Quantitative hCG is negative. UDS is negative. Serum alcohol level is 277. COVID is positive. After period of observation the patient became more coherent and I did discuss her presentation. She stated that her and her were at a bar and they were about to leave as they were getting intoxicated. She states that she does not remember falling but does not remember coming into the hospital. She states that she has not had episodes of syncope, chest pain or any other injury. She denies any current pain. Given the punctate laceration on her lip I did discuss tetanus status with the patient. She is not up-to-date therefore we will administer a tetanus booster. Also discussed with the patient at this time that in order to clear her C-spine we would need to wait until she is clinically sober. She was amenable to this plan. RN notified me that the patient walked out of the emergency department. Therefore we contacted the police department with the patient does not have decisional capacity given her intoxication. We did attempt to contact her by a number in EMR however unsuccessful. DISPOSITION: The patient eloped FINAL IMPRESSION(S)/DIAGNOSES: 1. Acute alcohol intoxication 2. Acute mechanical fall 3. Acute closed head injury 4. Acute coronavirus infection Maurilio Gauthier M.D. head Pain Score (Numeric/FACES): 4 - Related Data Allergies Allergy/AdvReac Type Severity Reaction Status Date / Time No Known Allergies Allergy Verified 03/04/20 01:41 Home Meds: Home Meds Vits #93/Iron Fum/FA [ Formula Tablet] 1 each PO DAILY 05/12/13 [History] Venlafaxine [Effexor XR] 150 tab PO DAILY 12/15/14 [History] Cyanocobalamin (Vitamin B-12) [Vitamin B-12] 1,000 mcg PO DAILY 04/14/16 [History] Ferrous Sulfate [Iron] 1 tab PO DAILY 04/14/16 [History] Vitamin B Complex Vit C No.4 [Super B Complex] 1 tab PO DAILY 04/14/16 [History] Zinc 1 tab PO DAILY 04/14/16 [History] Diclofenac Sodium [Voltaren] 75 mg PO BIDMEALS #20 tab.cr 08/22/19 [Rx] DULoxetine [Cymbalta] 60 mg PO DAILY 08/29/19 [History] nitrofurantoin macrocrystaL [Nitrofurantoin] 100 mg PO DAILY 08/29/19 [History] valACYclovir [Valtrex] 1,000 mg PO DAILY 08/29/19 [History] Past Medical History HEENT History: Reports: None Cardiovascular History: Reports: None Respiratory History: Reports: None Gastrointestinal History: Reports: Bowel Obstruction Other Gastrointestinal History: gastric bypass 2011 Genitourinary History: Reports: UTI, Recurrent PROPOSAL ANALYST History: Reports: Polycystic Ovaries Musculoskeletal History: Reports: None Neurological History: Reports: None Psychiatric History: Reports: Anxiety, Depression Endocrine/Metabolic History: Reports: Obesity/BMI 30+ Insulin Pump Model and Digital Forensics Investigator: None Hematologic History: Reports: None Immunologic History: Reports: None Oncologic (Cancer) History: Reports: None Dermatologic History: Reports: Other (See Below) Other Dermatologic History: adult acne - Infectious Disease History Infectious Disease History: Reports: None - Past Surgical History Head Surgeries/Procedures: Reports: None HEENT Surgical History: Reports: Tonsillectomy Respiratory Surgical History: Reports: None GI Surgical History: Reports: Appendectomy, Bariatric Procedure, Colon, Hernia Repair/Other Female Surgical History: Reports: Cystectomy Endocrine Surgical History: Reports: None Neurological Surgical History: Reports: None Musculoskeletal Surgical History: Reports: None Social & Family History - Family History Family Medical History: Noncontributory - Tobacco Use Smoking Status *Q: Never Smoker Second Hand Smoke Exposure: No - Caffeine Use Caffeine Use: Reports: Coffee - Recreational Drug Use Recreational Drug Use: No Review of Systems - Review of Systems Review Of Systems: See Below ED EXAM, GENERAL - Physical Exam Exam: See Below Course - Vital Signs Last Recorded V/S: Last Vital Signs Temp 35.7 C L 03/04/20 01:07 Pulse 99 03/04/20 01:07 Resp 16 03/04/20 01:07 BP 128/101 H 03/04/20 01:07 Pulse Ox 96 03/04/20 01:07 - Orders/Labs/Meds Orders: Active Orders 24 hr Category Date Time Status CORONAVIRUS COVID-19 PCR PHL Stat Lab 03/04/20 02:05 Received Saline Lock Insert [OM.PC] Stat Oth 03/04/20 01:16 Ordered Labs: Laboratory Tests 03/04/20 03/04/20 03/04/20 Range/Units 01:08 01:08 01:08 WBC 15.86 H (4.0-11.0) K/uL RBC 4.61 (4.30-5.90) M/uL Hgb 9.0 L (12.0-16.0) g/dL Hct 30.2 L (36.0-46.0) % MCV 65.5 L (80.0-98.0) fL MCH 19.5 L (27.0-32.0) pg MCHC 29.8 L (31.0-37.0) g/dL RDW Std Deviation 43.2 (28.0-62.0) fl RDW Coeff of Bruce 19 H (11.0-15.0) % Plt Count 346 (150-400) K/uL MPV 9.60 (7.40-12.00) fL Neut % (Auto) 50.9 (48.0-80.0) % Lymph % (Auto) 37.8 (16.0-40.0) % [place] % (Auto) 6.5 (0.0-15.0) % Eos % (Auto) 4.2 (0.0-7.0) % Baso % (Auto) 0.6 (0.0-1.5) % Neut # (Auto) 8.1 H (1.4-5.7) K/uL Lymph # (Auto) 6.0 H (0.6-2.4) K/uL [place] # (Auto) 1.0 H (0.0-0.8) K/uL Eos # (Auto) 0.7 (0.0-0.7) K/uL Baso # (Auto) 0.1 (0.0-0.1) K/uL Nucleated RBC % 0.0 /100WBC Nucleated RBCs # 0 K/uL INR APTT 23.6 (18.6-31.3) SEC Sodium 135 L (136-145) mmol/L Potassium 2.5 L (3.5-5.1) mmol/L Chloride 101 (98-107) mmol/L Carbon Dioxide 22.6 (21.0-32.0) mmol/L BUN 9 (7.0-18.0) mg/dL Creatinine 0.7 (0.6-1.0) mg/dL Est Cr Clr Drug Dosing TNP Estimated GFR (MDRD) > 60.0 ml/min Glucose 126 H (74-106) mg/dL Calcium 8.1 L (8.5-10.1) mg/dL Total Bilirubin 0.2 (0.2-1.0) mg/dL AST 18 (15-37) IU/L ALT 19 (14-63) IU/L Alkaline Phosphatase 86 (46-116) U/L Total Protein 7.1 (6.4-8.2) g/dL Albumin 3.5 (3.4-5.0) g/dL Globulin 3.6 (2.6-4.0) g/dL Albumin/Globulin Ratio 1.0 (0.9-1.6) HCG, Qual (NEG) Urine Opiates Screen (NEGATIVE) Ur Oxycodone Screen (NEGATIVE) Urine Methadone Screen (NEGATIVE) Ur Barbiturates Screen (NEGATIVE) Ur Phencyclidine Scrn (NEGATIVE) Ur Amphetamine Screen (NEGATIVE) U Methamphetamines Scrn (NEGATIVE) U Benzodiazepines Scrn (NEGATIVE) U Cocaine Metab Screen (NEGATIVE) U Marijuana (THC) Screen (NEGATIVE) Ethyl Alcohol 277 mg/dL SARS CoV-2 RNA Rapid DANIEL (NEGATIVE) Blood Type Antibody Screen 03/04/20 03/04/20 03/04/20 Range/Units 01:08 01:08 01:08 WBC (4.0-11.0) K/uL RBC (4.30-5.90) M/uL Hgb (12.0-16.0) g/dL Hct (36.0-46.0) % MCV (80.0-98.0) fL MCH (27.0-32.0) pg MCHC (31.0-37.0) g/dL RDW Std Deviation (28.0-62.0) fl RDW Coeff of Bruce (11.0-15.0) % Plt Count (150-400) K/uL MPV (7.40-12.00) fL Neut % (Auto) (48.0-80.0) % Lymph % (Auto) (16.0-40.0) % [place] % (Auto) (0.0-15.0) % Eos % (Auto) (0.0-7.0) % Baso % (Auto) (0.0-1.5) % Neut # (Auto) (1.4-5.7) K/uL Lymph # (Auto) (0.6-2.4) K/uL [place] # (Auto) (0.0-0.8) K/uL Eos # (Auto) (0.0-0.7) K/uL Baso # (Auto) (0.0-0.1) K/uL Nucleated RBC % /100WBC Nucleated RBCs # K/uL INR 0.97 APTT (18.6-31.3) SEC Sodium (136-145) mmol/L Potassium (3.5-5.1) mmol/L Chloride (98-107) mmol/L Carbon Dioxide (21.0-32.0) mmol/L BUN (7.0-18.0) mg/dL Creatinine (0.6-1.0) mg/dL Est Cr Clr Drug Dosing Estimated GFR (MDRD) ml/min Glucose (74-106) mg/dL Calcium (8.5-10.1) mg/dL Total Bilirubin (0.2-1.0) mg/dL AST (15-37) IU/L ALT (14-63) IU/L Alkaline Phosphatase (46-116) U/L Total Protein (6.4-8.2) g/dL Albumin (3.4-5.0) g/dL Globulin (2.6-4.0) g/dL Albumin/Globulin Ratio (0.9-1.6) HCG, Qual NEGATIVE (NEG) Urine Opiates Screen (NEGATIVE) Ur Oxycodone Screen (NEGATIVE) Urine Methadone Screen (NEGATIVE) Ur Barbiturates Screen (NEGATIVE) Ur Phencyclidine Scrn (NEGATIVE) Ur Amphetamine Screen (NEGATIVE) U Methamphetamines Scrn (NEGATIVE) U Benzodiazepines Scrn (NEGATIVE) U Cocaine Metab Screen (NEGATIVE) U Marijuana (THC) Screen (NEGATIVE) Ethyl Alcohol mg/dL SARS CoV-2 RNA Rapid DANIEL (NEGATIVE) Blood Type O POSITIVE Antibody Screen NEGATIVE 03/04/20 03/04/20 Range/Units 02:05 05:01 WBC (4.0-11.0) K/uL RBC (4.30-5.90) M/uL Hgb (12.0-16.0) g/dL Hct (36.0-46.0) % MCV (80.0-98.0) fL MCH (27.0-32.0) pg MCHC (31.0-37.0) g/dL RDW Std Deviation (28.0-62.0) fl RDW Coeff of Bruce (11.0-15.0) % Plt Count (150-400) K/uL MPV (7.40-12.00) fL Neut % (Auto) (48.0-80.0) % Lymph % (Auto) (16.0-40.0) % [place] % (Auto) (0.0-15.0) % Eos % (Auto) (0.0-7.0) % Baso % (Auto) (0.0-1.5) % Neut # (Auto) (1.4-5.7) K/uL Lymph # (Auto) (0.6-2.4) K/uL [place] # (Auto) (0.0-0.8) K/uL Eos # (Auto) (0.0-0.7) K/uL Baso # (Auto) (0.0-0.1) K/uL Nucleated RBC % /100WBC Nucleated RBCs # K/uL INR APTT (18.6-31.3) SEC Sodium (136-145) mmol/L Potassium (3.5-5.1) mmol/L Chloride (98-107) mmol/L Carbon Dioxide (21.0-32.0) mmol/L BUN (7.0-18.0) mg/dL Creatinine (0.6-1.0) mg/dL Est Cr Clr Drug Dosing Estimated GFR (MDRD) ml/min Glucose (74-106) mg/dL Calcium (8.5-10.1) mg/dL Total Bilirubin (0.2-1.0) mg/dL AST (15-37) IU/L ALT (14-63) IU/L Alkaline Phosphatase (46-116) U/L Total Protein (6.4-8.2) g/dL Albumin (3.4-5.0) g/dL Globulin (2.6-4.0) g/dL Albumin/Globulin Ratio (0.9-1.6) HCG, Qual (NEG) Urine Opiates Screen NEGATIVE (NEGATIVE) Ur Oxycodone Screen NEGATIVE (NEGATIVE) Urine Methadone Screen NEGATIVE (NEGATIVE) Ur Barbiturates Screen NEGATIVE (NEGATIVE) Ur Phencyclidine Scrn NEGATIVE (NEGATIVE) Ur Amphetamine Screen NEGATIVE (NEGATIVE) U Methamphetamines Scrn NEGATIVE (NEGATIVE) U Benzodiazepines Scrn NEGATIVE (NEGATIVE) U Cocaine Metab Screen NEGATIVE (NEGATIVE) U Marijuana (THC) Screen NEGATIVE (NEGATIVE) Ethyl Alcohol mg/dL SARS CoV-2 RNA Rapid DANIEL POSITIVE H (NEGATIVE) Blood Type Antibody Screen Meds: Medications Discontinued Medications Generic Name Dose Route Start Last Admin Trade Name Freq PRN Reason Stop Dose Admin Sodium Chloride 1,000 mls @ 999 mls/hr 03/04/20 01:47 03/04/20 02:30 Normal Saline IV 03/04/20 02:47 999 mls/hr .BOLUS ONE Administration Ondansetron HCl Confirm 03/04/20 01:09 03/04/20 06:51 Zofran Administered 03/04/20 01:10 Not Given Dose 4 mg .ROUTE .STK-MED ONE Ondansetron HCl 4 mg 03/04/20 06:46 03/04/20 01:30 Zofran IVPUSH 03/04/20 06:47 4 mg ONETIME ONE Administration Sodium Chloride 10 ml 03/04/20 01:15 Saline Flush FLUSH ASDIRECTED PRN Keep Vein Open Sodium Chloride 2.5 ml 03/04/20 01:15 Saline Flush FLUSH ASDIRECTED PRN Keep Vein Open Tetanus/Diphtheria Toxoids 0.5 ml 03/04/20 05:46 03/04/20 05:33 Tenivac IM 03/04/20 05:47 Not Given .ONCE ONE Departure - Departure Time of Disposition: 05:30 Disposition: Eloped 07 Clinical Impression: Alcohol intoxication Qualifiers: Complication of substance-induced condition: with unspecified complication Qualified Code(s): F10.929 - Alcohol use, unspecified with intoxication, unspecified Head injury Qualifiers: Encounter type: initial encounter Qualified Code(s): S09.90XA - Unspecified injury of head, initial encounter - Discharge Information *PRESCRIPTION DRUG MONITORING PROGRAM REVIEWED*: No *COPY OF PRESCRIPTION DRUG MONITORING REPORT IN PATIENT MOISES: No Referrals: Roberta Joiner MD [Primary Care Provider] - Forms: ED Department Discharge Sepsis Event Note (ED) - Evaluation Sepsis Screening Result: No Definite Risk - Focused Exam Vital Signs: Vital Signs Temp Pulse Resp BP Pulse Ox 03/04/20 01:07 35.7 C L 99 16 128/101 H 96 - My Orders Last 24 Hours: My Active Orders 03/04/20 01:16 Saline Lock Insert [OM.PC] Stat 03/04/20 02:05 CORONAVIRUS COVID-19 PCR PHL Stat - Assessment/Plan Last 24 Hours: My Active Orders 03/04/20 01:16 Saline Lock Insert [OM.PC] Stat 03/04/20 02:05 CORONAVIRUS COVID-19 PCR [facility] Stat
[2020-03-04] MEDS ORDERED: Ondansetron 4 MG/2 ML SDV IVPUSH ONE (06:46)
== END 2020-03-04 05:33 | disposition left against medical advice (07) ==
LOC: MW.ED 01:06
DX: S09.90XA Unspecified injury of head, initial encounter (principal); S00.511A Abrasion of lip, initial encounter; U07.1 COVID-19; F41.9 Anxiety disorder, unspecified; F32.9 Major depressive disorder, single episode, unspecified; E66.9 Obesity, unspecified; Z68.33 Body mass index [BMI] 33.0-33.9, adult; F10.129 Alcohol abuse with intoxication, unspecified; Y90.8 Blood alcohol level of 240 mg/100 ml or more; W22.8XXA Striking against or struck by other objects, initial encounter
CPT/HCPCS: 36415; 70450; 71045; 72125; 72170; 80053; 80305; 80307; 84703; 85025; 85610; 85730; 86850; 86900; 86901; 87635; 93005; 96361; 96374; 99284; J2405; J7030; 93010; U0002

== ENCOUNTER 2022-03-17 06:00 | Day surgery (SDC) | payer BC ==
[2022-03-17] MEDS ORDERED: Propofol 200 MG/20 ML SDV ONE ×2 (10:11→10:37)
[2022-03-17] MEDS ORDERED: fentaNYL 250 MCG/5 ML SDV ONE (10:12)
[2022-03-17] MEDS ORDERED: cefOXitin 1 GM Vial ONE (10:15)
[2022-03-17] MEDS ORDERED: Lactated Ringers 1,000 ML IV ONE (10:21)
[2022-03-17] MEDS ORDERED: Ondansetron 4 MG/2 ML SDV ONE (10:56)
[2022-03-17] MEDS ORDERED: HYDROmorphone 1 MG/ML Syringe ONE (11:25)
== END 2022-03-17 12:20 ==
LOC: MW.SDS 06:00
PROVIDERS: ATTEND Obstetrics & Gynecology
DX: N92.0 Excessive and frequent menstruation with regular cycle (principal); Z79.899 Other long term (current) drug therapy; Z98.890 Other specified postprocedural states
CPT/HCPCS: 58563; J1170; J2405; J2704; J3010; J7120; 00952; J0694